=== PATIENT | female | born 1980 | race Caucasian/White ===

== ENCOUNTER 2019-06-03 12:47 | Outpatient (RCR) | payer BC | END 2019-06-25 | disposition home or self-care (01) | LOC: WCC 12:47 | DX: L98.492 Non-pressure chronic ulcer of skin of other sites with fat layer exposed (principal); O91.23 Nonpurulent mastitis associated with lactation; E03.9 Hypothyroidism, unspecified; Z79.899 Other long term (current) drug therapy | CPT/HCPCS: 11042; 11043; 87070; 87205; G0463 ==